=== PATIENT | female | born 1980 | race Two or more races ===

== ENCOUNTER 2024-07-17 09:01 | Emergency (ER) | payer OTHER ==
[~2024-07-17] VITALS: Ht 160 cm; Wt 99.8 kg
[~2024-07-17 09:01] MED LIST: ANAPROX275 MG PO
[2024-07-17] MEDS ORDERED: LABETALOL HCL100 MG PO (10:16)
[2024-07-17] MEDS ORDERED: ACETAMINOPHEN 500 MG GEL..CAP PO ONE (10:30)
[2024-07-17] MEDS ORDERED: FAMOTIDINE/PF 20 MG/2 ML VIAL IV PUSH ONE (10:30)
[2024-07-17 11:03] LABS: HEMATOCRIT 36.1 % (36.0-45.00); HEMOGLOBIN 11.9 g/dL (12.0-15.00); MEAN CELL VOLUME 79.4 fL (80.00-100.00); MEAN CORPUSCULAR HEMOGLOBIN 26.1 pg (27.00-32.0); MEAN CORPUSCULAR HGB CONC 32.8 g/dl (32.0-36.0); PLATELET COUNT 356 K/uL (150-450); RED BLOOD COUNT 4.55 M/uL (4.00-6.00); RED CELL DISTRIBUTION WIDTH 16.2 % (11.5-14.5)
[2024-07-17 11:48] LABS: CALCIUM 9.1 mg/dL (8.5-10.1); CREATININE SERUM 0.78 mg/dL (0.55-1.02); GFR 80.99; POTASSIUM 3.63 mEq/L (3.5-5.1)
[2024-07-17] MEDS ORDERED: NORFLEX100MG PO (12:31)
== END 2024-07-17 12:37 | disposition home or self-care (01) ==
LOC: ER 09:03
PROVIDERS: General Practice
DX: R07.9 Chest pain, unspecified (principal); M94.0 Chondrocostal junction syndrome [Tietze]